=== PATIENT | male | born 1970 | race Caucasian/White ===

== ENCOUNTER 2025-04-07 10:31 | Emergency (ER) | payer OTHER ==
[~2025-04-07] VITALS: Ht 167.6 cm; Wt 76.0 kg
[2025-04-07 10:36] VITALS: TEMP 101.7
[2025-04-07 10:58] LABS: PLATELET COUNT (AUTO) 228 K/uL (150-450); RED BLOOD CELL COUNT(AUTO) 4.94 MIL/uL (4.50-5.90); RED CELL DISTRIBUTION WIDTH 12.9 % (11.5-14.5); WHITE BLOOD COUNT (AUTO) 17.0 K/uL (4.5-11.0)
[2025-04-07 11:08] LABS: CALCIUM, TOTAL 8.4 mg/dL (8.8-10.5); CREATININE 0.77 mg/dL (0.60-1.30); GLOMERULAR FILTR. RATE CALC > 60 mL/min (>60); GLUCOSE,RANDOM 136 mg/dL (70-110); SODIUM SERUM 134 mmol/L (136-145); UREA NITROGEN, BLOOD 12 mg/dL (7-18)
[2025-04-07] MEDS: CefTRIAXone SODIUM 1 GM/VIAL IM ONE (11:47)
[2025-04-07] MEDS: LIDOCAINE/PF 1% 2 ML VIAL IM ONE (11:47)
[2025-04-07 11:57] LABS: COVID AG,FIA SOURCE NASAL SWAB
[2025-04-07] MEDS ORDERED: CIPR-515 PO (12:22)
[2025-04-07 12:24] LABS: SARS-COV2 (COVID) ANTIGEN,FIA Negative (Negative)
[2025-04-07 12:25] LABS: INFLUENZA TYPE A NEGATIVE FOR TYPE A (NEGATIVE); INFLUENZA TYPE B NEGATIVE FOR TYPE B (NEGATIVE)
[2025-04-07 12:32] VITALS: BP 145/90; PULSE 92; RESP 16; O2SAT 99
== END 2025-04-07 12:33 | disposition home or self-care (01) ==
LOC: EMS 10:47
DX: N50.89 Other specified disorders of the male genital organs (principal); Z98.890 Other specified postprocedural states; Z20.822 Contact with and (suspected) exposure to COVID-19
CPT/HCPCS: 99285; 87426; 80048; 85025; 87804; 36415; 76870; 96372; J0696; J3490